=== PATIENT | male | born 1975 | race African-American/Black ===

== ENCOUNTER 2021-03-08 07:43 | Day surgery (SDC) | payer OTHER ==
[2021-03-08] MEDS ORDERED: LIDOCAINE HCL 2% 100 MG/5 ML IJ ONE (07:44)
[2021-03-08] MEDS ORDERED: DIPRIVAN 200 MG/20 ML IV ONE (08:57)
[2021-03-08] MEDS ORDERED: Lactated Ringers 1,000 ML IV ONE (16:26)
--- NOTE | 2021-03-09 11:33 | XRAY ---
16 seconds fluoroscopy time in surgery for bilateral L4-S1 MBB.
== END 2021-03-08 09:35 | disposition home or self-care (01) ==
LOC: SDC-PAIN 07:43
PROVIDERS: ATTEND Psychiatry & Neurology Pain Medicine
DX: M47.816 Spondylosis without myelopathy or radiculopathy, lumbar region (principal); I10 Essential (primary) hypertension; G47.30 Sleep apnea, unspecified; E11.9 Type 2 diabetes mellitus without complications; D57.1 Sickle-cell disease without crisis; F41.9 Anxiety disorder, unspecified; F32.9 Major depressive disorder, single episode, unspecified; Z79.899 Other long term (current) drug therapy
CPT/HCPCS: 64493; 64494; 72020; 77002; 82947; J2704

== ENCOUNTER 2021-04-12 08:52 | Day surgery (SDC) | payer OTHER ==
[2021-04-12] MEDS ORDERED: BUPIVACAINE 0.5% VIAL IJ ONE (08:53)
--- NOTE | 2021-04-12 11:30 | XRAY ---
Indication: Bilateral L4-S1 MBB. Intraoperative fluoroscopy provided for 15 seconds. Single digital spot image submitted for interpretation demonstrates posterior needle tips projecting over the expected left and right L4-S1 nerve roots. Correlate with intraoperative findings/report.
--- NOTE | 2021-04-12 11:40 | XRAY ---
15 seconds fluoroscopy time in surgery for bilateral L4-S1 MBB.
[2021-04-12] MEDS ORDERED: Lactated Ringers 1,000 ML IV ONE (11:41)
== END 2021-04-12 10:45 | disposition home or self-care (01) ==
LOC: SDC-PAIN 08:52
PROVIDERS: ATTEND Psychiatry & Neurology Pain Medicine
DX: M47.816 Spondylosis without myelopathy or radiculopathy, lumbar region (principal); E11.9 Type 2 diabetes mellitus without complications; Z79.899 Other long term (current) drug therapy
CPT/HCPCS: 64493; 64494; 72020; 77002; 82947

== ENCOUNTER 2021-05-24 07:33 | Day surgery (SDC) | payer OTHER ==
[2021-05-24] MEDS ORDERED: Xylocaine 1% Vial 30 ML PF IJ ONE (07:34)
[2021-05-24] MEDS ORDERED: Depo-Medrol 40 MG/ML IM ONE (07:34)
[2021-05-24] MEDS ORDERED: BUPIVACAINE 0.5% VIAL IJ ONE (07:34)
[2021-05-24] MEDS ORDERED: Ketamine HCl 50 MG/ML ONE (08:32)
[2021-05-24] MEDS ORDERED: DIPRIVAN 200 MG/20 ML IV ONE (08:33)
[2021-05-24] MEDS ORDERED: Lactated Ringers 1,000 ML IV ONE (08:45)
--- NOTE | 2021-05-24 10:14 | XRAY ---
Indication: Right L4-S1 RFA. Intraoperative fluoroscopy provided for 25 seconds. 3 digital spot images submitted for interpretation demonstrates posterior needle tips projecting over the expected right L4-S1 nerve roots. Correlate with intraoperative findings/report.
--- NOTE | 2021-05-24 11:12 | XRAY ---
25 seconds of fluoroscopy was used in surgery for a right L4-S1 RFA.
== END 2021-05-24 09:15 | disposition home or self-care (01) ==
LOC: SDC-PAIN 07:33
PROVIDERS: ATTEND Psychiatry & Neurology Pain Medicine
DX: M47.816 Spondylosis without myelopathy or radiculopathy, lumbar region (principal); E11.9 Type 2 diabetes mellitus without complications; Z79.899 Other long term (current) drug therapy
CPT/HCPCS: 64635; 64636; 72100; 77002; 82947; J1030; J2001; J2704

== ENCOUNTER 2021-05-31 09:46 | Day surgery (SDC) | payer OTHER ==
[2021-05-31] MEDS ORDERED: Xylocaine 1% Vial 30 ML PF IJ ONE (09:47)
[2021-05-31] MEDS ORDERED: Depo-Medrol 40 MG/ML IM ONE (09:47)
[2021-05-31] MEDS ORDERED: BUPIVACAINE 0.5% VIAL IJ ONE (09:47)
[2021-05-31] MEDS ORDERED: Lactated Ringers 1,000 ML IV ONE (10:39)
[2021-05-31] MEDS ORDERED: DIPRIVAN 200 MG/20 ML IV ONE ×2 (10:56→11:07)
--- NOTE | 2021-05-31 12:06 | XRAY ---
Indication: Left L4-S1 RFA. Intraoperative fluoroscopy provided for 24 seconds. 3 digital spot images submitted for interpretation demonstrates posterior needle tips projecting over the expected left L4-S1 nerve roots. Correlate with intraoperative findings/report.
--- NOTE | 2021-05-31 12:41 | XRAY ---
24 seconds fluoroscopy time in surgery for left L4-S1 RFA.
== END 2021-05-31 11:25 | disposition home or self-care (01) ==
LOC: SDC-PAIN 09:46
PROVIDERS: ATTEND Psychiatry & Neurology Pain Medicine
DX: M47.816 Spondylosis without myelopathy or radiculopathy, lumbar region (principal); E11.9 Type 2 diabetes mellitus without complications; Z79.899 Other long term (current) drug therapy
CPT/HCPCS: 64635; 64636; 72100; 77002; 82947; J1030; J2001; J2704; Q9966

== ENCOUNTER 2022-08-15 09:10 | Day surgery (SDC) | payer OTHER ==
[2022-08-15] MEDS ORDERED: Xylocaine 1% Vial 30 ML PF IJ ONE (09:11)
[2022-08-15] MEDS ORDERED: Depo-Medrol 40 MG/ML IM ONE (09:11)
[2022-08-15] MEDS ORDERED: BUPIVACAINE 0.5% VIAL IJ ONE (09:11)
[2022-08-15] MEDS ORDERED: APRESOLINE 20 MG/ML INJ ONE (09:34)
[2022-08-15] MEDS ORDERED: Lactated Ringers 1,000 ML IV ONE (10:29)
[2022-08-15] MEDS ORDERED: Ketamine HCl 50 MG/ML ONE (10:35)
[2022-08-15] MEDS ORDERED: DIPRIVAN 200 MG/20 ML IV ONE (10:35)
--- NOTE | 2022-08-15 19:38 | XRAY ---
Indication: Right L4-S1 RFA. Intraoperative fluoroscopy provided for 22 seconds. 3 digital spot submitted for interpretation demonstrates posterior needle tips projecting over the expected right L4-S1 nerve roots. Correlate with intraoperative findings/report.
--- NOTE | 2022-08-15 20:02 | XRAY ---
22 seconds fluoroscopy time in surgery for right L4-S1 RFA
== END 2022-08-15 11:10 | disposition home or self-care (01) ==
LOC: SDC-PAIN 09:10
PROVIDERS: ATTEND Psychiatry & Neurology Pain Medicine
DX: M47.816 Spondylosis without myelopathy or radiculopathy, lumbar region (principal); E11.9 Type 2 diabetes mellitus without complications; Z79.899 Other long term (current) drug therapy
CPT/HCPCS: 64635; 64636; 72100; 77002; 82947; J0360; J1030; J2001; J2704

== ENCOUNTER 2022-08-29 08:55 | Day surgery (SDC) | payer OTHER ==
[2022-08-29] MEDS ORDERED: Depo-Medrol 40 MG/ML IM ONE (08:56)
[2022-08-29] MEDS ORDERED: BUPIVACAINE 0.5% VIAL IJ ONE (08:56)
[2022-08-29] MEDS ORDERED: LIDOCAINE HCL 1% 50 MG/5 ML VL PF IJ ONE (08:56)
[2022-08-29] MEDS ORDERED: Lactated Ringers 1,000 ML IV ONE (10:24)
[2022-08-29] MEDS ORDERED: DIPRIVAN 200 MG/20 ML IV ONE ×2 (10:38→10:46)
--- NOTE | 2022-08-29 12:46 | XRAY ---
Indication: Left L4-S1 RFA. Intraoperative fluoroscopy provided for 29 seconds. 4 digital spot image submitted for interpretation demonstrates posterior needle tips projecting over the expected left L4-S1 nerve roots. Correlate with intraoperative findings/report.
--- NOTE | 2022-08-29 12:49 | XRAY ---
29 seconds fluoroscopy time in surgery for left L4-S1 RFA.
== END 2022-08-29 11:11 | disposition home or self-care (01) ==
LOC: SDC-PAIN 08:55
PROVIDERS: ATTEND Psychiatry & Neurology Pain Medicine
DX: M47.816 Spondylosis without myelopathy or radiculopathy, lumbar region (principal); E11.9 Type 2 diabetes mellitus without complications; Z79.899 Other long term (current) drug therapy
CPT/HCPCS: 64635; 64636; 72100; 77002; 82947; J1030; J2001; J2704

== ENCOUNTER 2023-07-17 15:34 | Day surgery (SDC) | payer OTHER ==
[2023-07-17] MEDS ORDERED: BUPIVACAINE 0.5% VIAL IJ ONE (15:35)
[2023-07-17] MEDS ORDERED: LIDOCAINE HCL 1% 50 MG/5 ML VL PF IJ ONE (15:35)
[2023-07-17] MEDS ORDERED: Depo-Medrol 40 MG/ML IM ONE (15:35)
--- NOTE | 2023-07-17 19:25 | XRAY ---
Indication: Bilateral SI joint injection. Intraoperative fluoroscopy provided for 21 seconds. 5 digital spot image submitted for interpretation demonstrates posterior needle tip projecting over the left and right SI joints. Correlate with intraoperative findings/report.
--- NOTE | 2023-07-18 09:42 | XRAY ---
21 seconds of fluoroscopy was used in surgery for a bilateral sacroiliac joint injection.
== END 2023-07-17 18:40 | disposition home or self-care (01) ==
LOC: SDC-PAIN 15:34
PROVIDERS: ATTEND Psychiatry & Neurology Pain Medicine
DX: M46.1 Sacroiliitis, not elsewhere classified (principal); E11.9 Type 2 diabetes mellitus without complications; Z79.899 Other long term (current) drug therapy
CPT/HCPCS: 27096; 72202; 77002; 82947; G0260; J1030; J2001; Q9966